=== PATIENT | male | born 1990 | race Caucasian/White ===

== ENCOUNTER 2018-12-12 23:28 | Emergency (ER) | payer SELFPAY ==
[~2018-12-12] VITALS: Ht 185.4 cm; Wt 93.6 kg
[2018-12-13 00:04] VITALS: Ht 185.4 cm; Wt 93.6 kg
== END 2018-12-13 02:30 | disposition left against medical advice (07) ==
LOC: FTE 23:28
DX: Z53.21 Procedure and treatment not carried out due to patient leaving prior to being seen by health care provider (principal)